=== PATIENT | male | born 1975 | race Caucasian/White ===

== ENCOUNTER 2016-03-16 00:04 | Observation (INO) | payer SELFPAY ==
[~2016-03-16] VITALS: Ht 182.9 cm; Wt 116.8 kg
[~2016-03-16 00:04] MED LIST: ATENOLOL50 MG PO; CARVEDILOL3.125 MG PO; COMPAZINE5 MG PO; LASIX40 MG PO; LO-DOSE ASPIRIN81 M2 PO; MEDROL DOSEPAK4 MG PO; NORVASC10 MG PO; OMEPRAZOLE40 M1 PO; TRAMADOL HCL50 MG PO; VENTOLIN HFA18 GM IH; ZOFRAN4 MG PO; isosorbide PO
[2016-03-16 00:46] LABS: HEMATOCRIT 45.9 % (38.0-50.0); MCH 31.4 PG (29.0-34.0); MCHC 34.9 G/DL (30.0-36.0); MCV 90.2 FL (86-99); MEAN PLAT.VOLUME 8.7 uM^3 (9.0-12.4); PLATELET COUNT 345 K/uL (156-360); RBC DIS.WIDTH-CV 13.6 % (11.8-14.6); RBC DIS.WIDTH-SD 43.8 % (39-53); RED BLOOD COUNT 5.09 M/uL (4.00-5.50); WHITE BLOOD COUNT 10.9 K/uL (4.1-10.2)
[2016-03-16 00:56] LABS: CHLORIDE 105 mEq/L (99-109); POTASSIUM 3.8 mEq/L (3.7-5.4); SODIUM 139 mEq/L (136-147)
[2016-03-16 00:58] LABS: GLUCOSE 109 mg/dL (70-99)
[2016-03-16 00:59] LABS: ANION GAP 10 MEQ/L (2-14)
[2016-03-16 01:02] LABS: GFR ESTIMATE (CALCULATED) > 59 mL/min/
[2016-03-16 01:03] LABS: UREA NITROGEN (BUN) 8 mg/dL (9-23)
[2016-03-16 01:09] LABS: TROP-I INTERPRETATION NEGATIVE; TROPONIN-I < 0.01 ng/mL (0.0-0.30)
[2016-03-16 01:52] LABS: D-DIMER ELISA 0.54 mg/L FEU (< 0.57)
[2016-03-16 06:15] VITALS: BP 114/70
[2016-03-16 07:58] VITALS: BP 111/70
[2016-03-16 12:11] VITALS: BP 107/77
[2016-03-16 12:55] LABS: TROP-I INTERPRETATION NEGATIVE; TROPONIN-I < 0.01 ng/mL (0.0-0.30)
[2016-03-16] MEDS ORDERED: IMDUR30 MG PO (13:16)
== END 2016-03-16 15:08 | disposition left against medical advice (07) ==
LOC: EME 00:04 → EDOF 03:49 → 4EAST 05:31
PROVIDERS: Hospitalist
DX: M79.604 Pain in right leg (principal); R07.9 Chest pain, unspecified; I25.10 Atherosclerotic heart disease of native coronary artery without angina pectoris; F17.200 Nicotine dependence, unspecified, uncomplicated; Z82.49 Family history of ischemic heart disease and other diseases of the circulatory system; Z82.3 Family history of stroke; Z80.49 Family history of malignant neoplasm of other genital organs
CPT/HCPCS: 71020; 71250; 78582; 80048; 83880; 84484; 85027; 85379; 93005; 93971; A9540; A9567; G0378; J1170; J1650; J2270; J2405; J3010

== ENCOUNTER 2016-03-21 23:39 | Observation (INO) | payer SELFPAY ==
[~2016-03-21] VITALS: Ht 182.9 cm; Wt 116.6 kg
[~2016-03-21 23:39] MED LIST changes: +IMDUR30 MG PO
[2016-03-22 01:25] LABS: HEMATOCRIT 46.6 % (38.0-50.0); MCH 31.3 PG (29.0-34.0); MCV 89.6 FL (86-99); MEAN PLAT.VOLUME 8.9 uM^3 (9.0-12.4); PLATELET COUNT 349 K/uL (156-360); RBC DIS.WIDTH-CV 13.5 % (11.8-14.6); RBC DIS.WIDTH-SD 43.7 % (39-53); WHITE BLOOD COUNT 8.1 K/uL (4.1-10.2)
[2016-03-22 01:36] LABS: CHLORIDE 105 mEq/L (99-109); POTASSIUM 4.1 mEq/L (3.7-5.4); SODIUM 138 mEq/L (136-147)
[2016-03-22 01:37] LABS: GLUCOSE 100 mg/dL (70-99)
[2016-03-22 01:39] LABS: ANION GAP 10 MEQ/L (2-14)
[2016-03-22 01:41] LABS: GFR ESTIMATE (CALCULATED) > 59 mL/min/
[2016-03-22 01:42] LABS: UREA NITROGEN (BUN) 9 mg/dL (9-23)
[2016-03-22 01:47] LABS: TROP-I INTERPRETATION NEGATIVE; TROPONIN-I < 0.01 ng/mL (0.0-0.30)
[2016-03-22 02:25] LABS: D-DIMER ELISA 0.53 mg/L FEU (< 0.57)
[2016-03-22 05:31] VITALS: BP 126/81
[2016-03-22 07:48] VITALS: BP 117/71
[2016-03-22 08:07] LABS: HEMATOCRIT 42.9 % (38.0-50.0); MCH 31.6 PG (29.0-34.0); MCV 90.5 FL (86-99); MEAN PLAT.VOLUME 9.6 uM^3 (9.0-12.4); PLATELET COUNT 280 K/uL (156-360); RBC DIS.WIDTH-CV 13.4 % (11.8-14.6); RBC DIS.WIDTH-SD 44.3 % (39-53); RED BLOOD COUNT 4.74 M/uL (4.00-5.50); WHITE BLOOD COUNT 6.5 K/uL (4.1-10.2)
[2016-03-22 08:35] LABS: TROP-I INTERPRETATION NEGATIVE; TROPONIN-I < 0.01 ng/mL (0.0-0.30)
[2016-03-22 11:51] VITALS: BP 114/64
[2016-03-22] MEDS ORDERED: ASPIR 8181 M1 PO (12:07)
[2016-03-22] MEDS ORDERED: CARVEDILOL3.125 MG PO (12:07)
[2016-03-22] MEDS ORDERED: NORVASC10 MG PO (12:07)
[2016-03-22] MEDS ORDERED: IMDUR30 MG PO (12:08)
[2016-03-22] MEDS ORDERED: LASIX20 MG PO (12:08)
[2016-03-22 13:56] LABS: TROP-I INTERPRETATION NEGATIVE; TROPONIN-I < 0.01 ng/mL (0.0-0.30)
[2016-03-22 15:04] VITALS: BP 113/70
== END 2016-03-22 15:16 | disposition home or self-care (01) ==
LOC: EME 23:39 → 5WEST 03-22 03:45 → EDOF 03-22 03:45 → 5WEST 03-22 05:22
PROVIDERS: Family Medicine; Physician Assistant
DX: R07.89 Other chest pain (principal); M54.2 Cervicalgia; M25.512 Pain in left shoulder; I10 Essential (primary) hypertension; F17.210 Nicotine dependence, cigarettes, uncomplicated; E66.9 Obesity, unspecified; I25.10 Atherosclerotic heart disease of native coronary artery without angina pectoris; I80.9 Phlebitis and thrombophlebitis of unspecified site; Z82.49 Family history of ischemic heart disease and other diseases of the circulatory system; Z82.3 Family history of stroke; Z80.49 Family history of malignant neoplasm of other genital organs; Z91.013 Allergy to seafood; Z88.8 Allergy status to other drugs, medicaments and biological substances; Z88.5 Allergy status to narcotic agent; Z88.6 Allergy status to analgesic agent
CPT/HCPCS: 71020; 80048; 83880; 84484; 85027; 85379; 85610; 85730; 93005; 93306; 93971; 99281; 99285; G0378; J2270; J2405

== ENCOUNTER 2016-03-25 17:35 | Observation (INO) | payer SELFPAY ==
[~2016-03-25] VITALS: Ht 195.6 cm; Wt 116.5 kg
[~2016-03-25 17:35] MED LIST changes: +ASPIR 8181 M1 PO; +LASIX20 MG PO
[2016-03-25] MEDS ORDERED: IMDUR30 MG PO (18:23)
[2016-03-25] MEDS ORDERED: NORVASC10 MG PO (18:24)
[2016-03-25] MEDS ORDERED: LO-DOSE ASPIRIN81 M2 PO (18:25)
[2016-03-25] MEDS ORDERED: CARVEDILOL3.125 MG PO (18:25)
[2016-03-25 19:34] LABS: BASOPHIL COUNT 0.1 K/uL (0-0.1); EOSINOPHIL (%) 2.8 % (0-5); EOSINOPHIL COUNT 0.2 K/uL (0-0.3); HEMATOCRIT 48.3 % (38.0-50.0); IMMATURE GRANULOCYTE (%) 0.3 % (0.0-0.7); IMMATURE GRANULOCYTE COUNT 0.2 K/uL; LYMPHOCYTE COUNT 2.4 K/uL (1.0-2.8); MCH 31.5 PG (29.0-34.0); MCHC 35.4 G/DL (30.0-36.0); MEAN PLAT.VOLUME 9.2 uM^3 (9.0-12.4); MONOCYTE (%) 10.7 % (3-12); MONOCYTE COUNT 0.9 K/uL (0-0.8); NEUTROPHIL (%) 55.7 % (45-76); NEUTROPHIL COUNT 4.4 K/uL (1.8-6.4); PLATELET COUNT 332 K/uL (156-360); RBC DIS.WIDTH-CV 13.3 % (11.8-14.6); RBC DIS.WIDTH-SD 42.8 % (39-53); RED BLOOD COUNT 5.43 M/uL (4.00-5.50); WHITE BLOOD COUNT 7.9 K/uL (4.1-10.2)
[2016-03-25 19:44] LABS: CHLORIDE 104 mEq/L (99-109); POTASSIUM 4.5 mEq/L (3.7-5.4); SODIUM 136 mEq/L (136-147)
[2016-03-25 19:46] LABS: GLUCOSE 97 mg/dL (70-99)
[2016-03-25 19:47] LABS: ANION GAP 10 MEQ/L (2-14)
[2016-03-25 19:50] LABS: GFR ESTIMATE (CALCULATED) > 59 mL/min/
[2016-03-25 19:51] LABS: UREA NITROGEN (BUN) 9 mg/dL (9-23)
[2016-03-25 19:52] LABS: TROP-I INTERPRETATION NEGATIVE; TROPONIN-I 0.02 ng/mL (0.0-0.30)
[2016-03-26 00:19] VITALS: BP 113/77
[2016-03-26 00:41] LABS: TROP-I INTERPRETATION NEGATIVE; TROPONIN-I < 0.01 ng/mL (0.0-0.30)
[2016-03-26 09:14] VITALS: BP 110/63
[2016-03-26 09:16] LABS: TROP-I INTERPRETATION NEGATIVE; TROPONIN-I < 0.01 ng/mL (0.0-0.30)
[2016-03-26 16:22] VITALS: BP 109/58
== END 2016-03-26 19:54 | disposition left against medical advice (07) ==
LOC: EME 17:35 → EDOF 22:48 → 5WEST 03-26 00:05
PROVIDERS: Family Medicine; Physician Assistant
DX: R07.9 Chest pain, unspecified (principal); I10 Essential (primary) hypertension; F17.200 Nicotine dependence, unspecified, uncomplicated; D75.1 Secondary polycythemia; I25.10 Atherosclerotic heart disease of native coronary artery without angina pectoris; Z79.82 Long term (current) use of aspirin; Z82.49 Family history of ischemic heart disease and other diseases of the circulatory system; Z82.3 Family history of stroke; Z80.49 Family history of malignant neoplasm of other genital organs; Z91.09 Other allergy status, other than to drugs and biological substances; Z88.8 Allergy status to other drugs, medicaments and biological substances; Z88.5 Allergy status to narcotic agent
CPT/HCPCS: 71020; 80048; 84484; 85025; 93005; 99281; 99285; C9113; G0378; J1644; J2270; J2550

== ENCOUNTER 2016-04-05 18:51 | Emergency (ER) | payer SELFPAY ==
[~2016-04-05] VITALS: Ht 177.8 cm; Wt 116.1 kg
[2016-04-05 19:34] LABS: HEMATOCRIT 45.9 % (38.0-50.0); MCH 31.1 PG (29.0-34.0); MCHC 35.1 G/DL (30.0-36.0); MCV 88.8 FL (86-99); PLATELET COUNT 281 K/uL (156-360); RBC DIS.WIDTH-CV 13.5 % (11.8-14.6); RED BLOOD COUNT 5.17 M/uL (4.00-5.50)
[2016-04-05 19:42] LABS: CHLORIDE 105 mEq/L (99-109); POTASSIUM 4.1 mEq/L (3.7-5.4); SODIUM 137 mEq/L (136-147)
[2016-04-05 19:44] LABS: GLUCOSE 117 mg/dL (70-99)
[2016-04-05 19:46] LABS: ANION GAP 11 MEQ/L (2-14)
[2016-04-05 19:48] LABS: GFR ESTIMATE (CALCULATED) > 59 mL/min/
[2016-04-05 19:49] LABS: UREA NITROGEN (BUN) 9 mg/dL (9-23)
[2016-04-05 19:54] LABS: TROP-I INTERPRETATION NEGATIVE; TROPONIN-I < 0.01 ng/mL (0.0-0.30)
[2016-04-05 21:07] LABS: D-DIMER ELISA 0.54 mg/L FEU (< 0.57)
[2016-04-05 21:33] LABS: TROP-I INTERPRETATION NEGATIVE; TROPONIN-I < 0.01 ng/mL (0.0-0.30)
[2016-04-05 22:43] VITALS: BP 133/98
== END 2016-04-05 23:11 | disposition home or self-care (01) ==
LOC: EME 18:51
PROVIDERS: Emergency Medicine
DX: R07.89 Other chest pain (principal); E78.5 Hyperlipidemia, unspecified; I10 Essential (primary) hypertension; I25.10 Atherosclerotic heart disease of native coronary artery without angina pectoris; Z79.82 Long term (current) use of aspirin; F17.200 Nicotine dependence, unspecified, uncomplicated
CPT/HCPCS: 71020; 80048; 84484; 85027; 85379; 93005; 99281; 99284

== ENCOUNTER 2016-04-21 15:28 | Observation (INO) | payer SELFPAY ==
[~2016-04-21] VITALS: Ht 182.9 cm; Wt 117.5 kg
[2016-04-21 16:49] LABS: HEMATOCRIT 44.2 % (38.0-50.0); MCH 31.1 PG (29.0-34.0); MCHC 34.4 G/DL (30.0-36.0); MCV 90.4 FL (86-99); PLATELET COUNT 296 K/uL (156-360); RBC DIS.WIDTH-CV 13.2 % (11.8-14.6); RBC DIS.WIDTH-SD 43.7 % (39-53); RED BLOOD COUNT 4.89 M/uL (4.00-5.50); WHITE BLOOD COUNT 6.8 K/uL (4.1-10.2)
[2016-04-21 16:56] LABS: PROTHROMBIN TIME 10.2 (9.2-11.2); PTT 30.6 (25-32)
[2016-04-21 16:59] LABS: CHLORIDE 107 mEq/L (99-109); POTASSIUM 3.8 mEq/L (3.7-5.4); SODIUM 138 mEq/L (136-147)
[2016-04-21 17:01] LABS: GLUCOSE 95 mg/dL (70-99)
[2016-04-21 17:02] LABS: ANION GAP 9 MEQ/L (2-14)
[2016-04-21 17:05] LABS: GFR ESTIMATE (CALCULATED) > 59 mL/min/; UREA NITROGEN (BUN) 6 mg/dL (9-23)
[2016-04-21 17:07] LABS: TROP-I INTERPRETATION NEGATIVE; TROPONIN-I < 0.01 ng/mL (0.0-0.30)
[2016-04-21 20:18] VITALS: BP 120/88
[2016-04-21 23:54] VITALS: BP 109/63
[2016-04-21 23:58] LABS: TROP-I INTERPRETATION NEGATIVE; TROPONIN-I < 0.01 ng/mL (0.0-0.30)
[2016-04-22 04:00] VITALS: BP 110/54
[2016-04-22 05:04] LABS: HEMATOCRIT 41.3 % (38.0-50.0); MCH 30.9 PG (29.0-34.0); MCHC 33.7 G/DL (30.0-36.0); MCV 91.8 FL (86-99); MEAN PLAT.VOLUME 8.9 uM^3 (9.0-12.4); PLATELET COUNT 285 K/uL (156-360); RBC DIS.WIDTH-CV 13.3 % (11.8-14.6); RBC DIS.WIDTH-SD 45.3 % (39-53); WHITE BLOOD COUNT 6.4 K/uL (4.1-10.2)
[2016-04-22 05:17] LABS: CHLORIDE 106 mEq/L (99-109); SODIUM 139 mEq/L (136-147)
[2016-04-22 05:19] LABS: GLUCOSE 89 mg/dL (70-99)
[2016-04-22 05:20] LABS: ANION GAP 7 MEQ/L (2-14)
[2016-04-22 05:21] LABS: TOTAL BILIRUBIN 0.6 mg/dL (0.0-1.0)
[2016-04-22 05:22] LABS: ALKALINE PHOSPHATASE 35 IU/L (3-129)
[2016-04-22 05:23] LABS: GFR ESTIMATE (CALCULATED) > 59 mL/min/
[2016-04-22 05:24] LABS: UREA NITROGEN (BUN) 7 mg/dL (9-23)
[2016-04-22 05:27] LABS: TROP-I INTERPRETATION NEGATIVE; TROPONIN-I < 0.01 ng/mL (0.0-0.30)
[2016-04-22 07:54] VITALS: BP 91/55
[2016-04-22 12:45] VITALS: BP 119/80
== END 2016-04-22 14:50 | disposition left against medical advice (07) ==
LOC: EXP 15:28 → EME 15:28 → EDOF 18:20 → 5WEST 20:20
PROVIDERS: Internal Medicine; Nurse Practitioner Family
DX: R07.89 Other chest pain (principal); I25.10 Atherosclerotic heart disease of native coronary artery without angina pectoris; I11.0 Hypertensive heart disease with heart failure; I50.9 Heart failure, unspecified; G43.909 Migraine, unspecified, not intractable, without status migrainosus; F32.9 Major depressive disorder, single episode, unspecified; F17.210 Nicotine dependence, cigarettes, uncomplicated; Z91.19 Patient's noncompliance with other medical treatment and regimen
CPT/HCPCS: 71020; 80048; 80053; 83880; 84484; 85027; 85610; 85730; 93005; 99281; 99285; G0378; J1644; J2270; J2405; J7030; S0028

== ENCOUNTER 2016-05-16 16:33 | Emergency (ER) | payer SELFPAY ==
[~2016-05-16] VITALS: Ht 182.9 cm; Wt 119.4 kg
[2016-05-16 16:55] VITALS: BP 119/82
[2016-05-16 17:17] LABS: HEMATOCRIT 46.3 % (38.0-50.0); MCH 30.4 PG (29.0-34.0); MCHC 33.7 G/DL (30.0-36.0); MCV 90.1 FL (86-99); MEAN PLAT.VOLUME 8.8 uM^3 (9.0-12.4); PLATELET COUNT 344 K/uL (156-360); RBC DIS.WIDTH-CV 13.2 % (11.8-14.6); RBC DIS.WIDTH-SD 43.9 % (39-53); RED BLOOD COUNT 5.14 M/uL (4.00-5.50); WHITE BLOOD COUNT 6.9 K/uL (4.1-10.2)
[2016-05-16 17:33] LABS: CHLORIDE 106 mEq/L (99-109); POTASSIUM 4.1 mEq/L (3.7-5.4); SODIUM 138 mEq/L (136-147)
[2016-05-16 17:34] LABS: GLUCOSE 100 mg/dL (70-99)
[2016-05-16 17:36] LABS: ANION GAP 10 MEQ/L (2-14)
[2016-05-16 17:38] LABS: GFR ESTIMATE (CALCULATED) > 59 mL/min/
[2016-05-16 17:39] LABS: UREA NITROGEN (BUN) 11 mg/dL (9-23)
[2016-05-16 17:45] LABS: TROP-I INTERPRETATION NEGATIVE; TROPONIN-I < 0.01 ng/mL (0.0-0.30)
== END 2016-05-16 19:51 | disposition left against medical advice (07) ==
LOC: EME 16:33
DX: R07.9 Chest pain, unspecified (principal); R06.02 Shortness of breath; Z53.21 Procedure and treatment not carried out due to patient leaving prior to being seen by health care provider
CPT/HCPCS: 71020; 80048; 84484; 85027; 93005

== ENCOUNTER 2016-06-05 14:59 | Observation (INO) | payer SELFPAY ==
[~2016-06-05] VITALS: Ht 182.9 cm; Wt 118.5 kg
[2016-06-05 16:02] LABS: HEMATOCRIT 47.7 % (38.0-50.0); MCH 30.9 PG (29.0-34.0); MCHC 34.4 G/DL (30.0-36.0); MEAN PLAT.VOLUME 8.9 uM^3 (9.0-12.4); PLATELET COUNT 307 K/uL (156-360); RBC DIS.WIDTH-CV 13.5 % (11.8-14.6); RBC DIS.WIDTH-SD 44.8 % (39-53); WHITE BLOOD COUNT 6.9 K/uL (4.1-10.2)
[2016-06-05 16:10] LABS: CHLORIDE 105 mEq/L (99-109); POTASSIUM 3.6 mEq/L (3.7-5.4); SODIUM 137 mEq/L (136-147)
[2016-06-05 16:11] LABS: GLUCOSE 120 mg/dL (70-99)
[2016-06-05 16:13] LABS: ANION GAP 11 MEQ/L (2-14)
[2016-06-05 16:15] LABS: GFR ESTIMATE (CALCULATED) > 59 mL/min/
[2016-06-05 16:16] LABS: UREA NITROGEN (BUN) 7 mg/dL (9-23)
[2016-06-05 16:25] LABS: TROP-I INTERPRETATION NEGATIVE; TROPONIN-I < 0.01 ng/mL (0.0-0.30)
[2016-06-05 17:57] LABS: D-DIMER ELISA 0.44 mg/L FEU (< 0.57)
[2016-06-05 21:48] VITALS: BP 122/90
[2016-06-06 00:37] VITALS: BP 122/63
[2016-06-06 00:59] LABS: TROP-I INTERPRETATION NEGATIVE; TROPONIN-I < 0.01 ng/mL (0.0-0.30)
[2016-06-06 07:06] VITALS: BP 131/78
[2016-06-06 09:01] LABS: MCH 30.3 PG (29.0-34.0); MCHC 33.8 G/DL (30.0-36.0); MCV 89.8 FL (86-99); MEAN PLAT.VOLUME 8.8 uM^3 (9.0-12.4); PLATELET COUNT 279 K/uL (156-360); RBC DIS.WIDTH-CV 13.6 % (11.8-14.6); RED BLOOD COUNT 5.01 M/uL (4.00-5.50)
[2016-06-06 09:28] LABS: ANION GAP 10 MEQ/L (2-14); CHLORIDE 103 MEQ/L (99-109); GFR ESTIMATE (CALCULATED) > 59 mL/min/; GLUCOSE 90 mg/dL (70-99); SAMPLE HEMOLYSIS CHECK 0; SAMPLE ICTERIC CHECK 0; SAMPLE LIPEMIA CHECK 0; SODIUM 137 MEQ/L (136-147); UREA NITROGEN (BUN) 8 mg/dL (9-23)
[2016-06-06 09:29] LABS: POTASSIUM 4.6 MEQ/L (3.7-5.4)
[2016-06-06 09:44] LABS: TROP-I INTERPRETATION NEGATIVE; TROPONIN-I < 0.01 ng/mL (0.0-0.30)
== END 2016-06-06 10:43 | disposition left against medical advice (07) ==
LOC: EME 14:59 → EDOF 20:48 → 5WEST 20:48 → EDOF 20:48 → 5WEST 21:33
PROVIDERS: Hospitalist; Internal Medicine
DX: R07.89 Other chest pain (principal); E87.6 Hypokalemia; I11.0 Hypertensive heart disease with heart failure; I50.22 Chronic systolic (congestive) heart failure; Z91.19 Patient's noncompliance with other medical treatment and regimen; E78.5 Hyperlipidemia, unspecified; F17.200 Nicotine dependence, unspecified, uncomplicated; E66.9 Obesity, unspecified; Z68.35 Body mass index [BMI] 35.0-35.9, adult; I25.10 Atherosclerotic heart disease of native coronary artery without angina pectoris
CPT/HCPCS: 71020; 80048; 84484; 85027; 85379; 93005; 99281; 99285; G0378; J1650; J2270; J2405; J3010; J7030

== ENCOUNTER 2016-08-18 00:24 | Emergency (ER) | payer SELFPAY ==
[~2016-08-18] VITALS: Ht 182.9 cm; Wt 120.2 kg
[2016-08-18 01:32] LABS: HEMATOCRIT 46.6 % (38.0-50.0); MCH 30.8 PG (29.0-34.0); MCHC 34.1 G/DL (30.0-36.0); MCV 90.1 FL (86-99); MEAN PLAT.VOLUME 8.8 uM^3 (9.0-12.4); PLATELET COUNT 339 K/uL (156-360); RBC DIS.WIDTH-CV 13.2 % (11.8-14.6); RBC DIS.WIDTH-SD 43.8 % (39-53); RED BLOOD COUNT 5.17 M/uL (4.00-5.50)
[2016-08-18 01:52] LABS: CHLORIDE 104 mEq/L (99-109); SODIUM 136 mEq/L (136-147)
[2016-08-18 01:54] LABS: GLUCOSE 103 mg/dL (70-99)
[2016-08-18 01:55] LABS: ANION GAP 10 MEQ/L (2-14)
[2016-08-18 01:58] LABS: GFR ESTIMATE (CALCULATED) > 59 mL/min/; UREA NITROGEN (BUN) 7 mg/dL (9-23)
[2016-08-18 02:01] LABS: TROP-I INTERPRETATION NEGATIVE; TROPONIN-I < 0.01 ng/mL (0.0-0.30)
[2016-08-18 03:00] VITALS: BP 129/89
== END 2016-08-18 03:01 | disposition home or self-care (01) ==
LOC: EME 00:24 → EXP 00:24
DX: R07.9 Chest pain, unspecified (principal); I10 Essential (primary) hypertension; E78.5 Hyperlipidemia, unspecified; Z79.82 Long term (current) use of aspirin; F17.200 Nicotine dependence, unspecified, uncomplicated; J98.11 Atelectasis
CPT/HCPCS: 71020; 80048; 84484; 85027; 93005; 99281; 99284

== ENCOUNTER 2016-09-09 17:46 | Emergency (ER) | payer SELFPAY ==
[~2016-09-09] VITALS: Ht 182.9 cm; Wt 121.3 kg
[2016-09-09 18:40] LABS: HEMATOCRIT 46.7 % (38.0-50.0); MCH 30.6 PG (29.0-34.0); MCHC 34.5 G/DL (30.0-36.0); MCV 88.6 FL (86-99); MEAN PLAT.VOLUME 8.7 uM^3 (9.0-12.4); PLATELET COUNT 316 K/uL (156-360); RBC DIS.WIDTH-CV 13.2 % (11.8-14.6); RED BLOOD COUNT 5.27 M/uL (4.00-5.50); WHITE BLOOD COUNT 8.1 K/uL (4.1-10.2)
[2016-09-09 18:49] LABS: CHLORIDE 104 mEq/L (99-109); POTASSIUM 3.7 mEq/L (3.7-5.4); SODIUM 137 mEq/L (136-147)
[2016-09-09 18:51] LABS: GLUCOSE 102 mg/dL (70-99)
[2016-09-09 18:52] LABS: ANION GAP 10 MEQ/L (2-14)
[2016-09-09 18:55] LABS: GFR ESTIMATE (CALCULATED) > 59 mL/min/; UREA NITROGEN (BUN) 8 mg/dL (9-23)
[2016-09-09 19:00] LABS: TROP-I INTERPRETATION NEGATIVE; TROPONIN-I < 0.01 ng/mL (0.0-0.30)
[2016-09-09] MEDS ORDERED: LASIX20 MG PO (20:10)
[2016-09-10 00:53] VITALS: BP 120/82
== END 2016-09-10 00:28 | disposition home or self-care (01) ==
LOC: EME 17:46 → EDOF 21:39 → ENRESERV 21:40 → CANRESERV 21:43 → ENRESERV 21:43 → CANRESERV 23:08
DX: R07.89 Other chest pain (principal); I11.0 Hypertensive heart disease with heart failure; I50.9 Heart failure, unspecified; I25.10 Atherosclerotic heart disease of native coronary artery without angina pectoris; E78.5 Hyperlipidemia, unspecified; F32.9 Major depressive disorder, single episode, unspecified; F41.9 Anxiety disorder, unspecified; F17.200 Nicotine dependence, unspecified, uncomplicated; Z87.01 Personal history of pneumonia (recurrent); E66.01 Morbid (severe) obesity due to excess calories; Z68.36 Body mass index [BMI] 36.0-36.9, adult; Z91.19 Patient's noncompliance with other medical treatment and regimen
CPT/HCPCS: 71020; 80048; 84484; 85027; 99281; 99285; J2405

== ENCOUNTER 2016-09-15 06:50 | Observation (INO) | payer SELFPAY ==
[~2016-09-15] VITALS: Ht 182.9 cm; Wt 120.0 kg
[2016-09-15 08:02] LABS: EOSINOPHIL (%) 4.2 % (0-5); EOSINOPHIL COUNT 0.3 K/uL (0-0.3); HEMATOCRIT 43.5 % (38.0-50.0); IMMATURE GRANULOCYTE (%) 0.5 % (0.0-0.7); LYMPHOCYTE COUNT 2.6 K/uL (1.0-2.8); MCH 30.7 PG (29.0-34.0); MCV 90.2 FL (86-99); MEAN PLAT.VOLUME 8.9 uM^3 (9.0-12.4); MONOCYTE (%) 10.2 % (3-12); MONOCYTE COUNT 0.8 K/uL (0-0.8); NEUTROPHIL (%) 51.5 % (45-76); PLATELET COUNT 271 K/uL (156-360); RBC DIS.WIDTH-CV 13.4 % (11.8-14.6); RBC DIS.WIDTH-SD 44.2 % (39-53); RED BLOOD COUNT 4.82 M/uL (4.00-5.50); WHITE BLOOD COUNT 7.7 K/uL (4.1-10.2)
[2016-09-15 08:15] LABS: PROTHROMBIN TIME 10.5 SEC (10.2-12.9)
[2016-09-15 08:17] LABS: D-DIMER ELISA < 150.00 ng/mLDDU (<230)
[2016-09-15 08:44] LABS: ALKALINE PHOSPHATASE 38 IU/L (3-129); ANION GAP 6 MEQ/L (2-14); CHLORIDE 104 MEQ/L (99-109); GFR ESTIMATE (CALCULATED) > 59 mL/min/; GLUCOSE 99 mg/dL (70-99); MAGNESIUM 1.9 mg/dl (1.3-2.7); POTASSIUM 3.7 MEQ/L (3.7-5.4); SAMPLE HEMOLYSIS CHECK 0; SAMPLE ICTERIC CHECK 0; SAMPLE LIPEMIA CHECK 0; SODIUM 136 MEQ/L (136-147); TOTAL BILIRUBIN 0.5 MG/DL (0.0-1.0); UREA NITROGEN (BUN) 8 mg/dL (9-23)
[2016-09-15 08:45] LABS: TROP-I INTERPRETATION NEGATIVE; TROPONIN-I 0.01 ng/mL (0.0-0.30)
[2016-09-15 10:06] LABS: ADD MIUA? NO; BILIRUBIN NEGATIVE; BLOOD NEGATIVE; COLOR YELLOW ((YELLOW)); GLUCOSE (STRIP) NEGATIVE; KETONES NEGATIVE; LEUKOCYTES NEGATIVE; NITRITE NEGATIVE; PROTEIN (STRIP) NEGATIVE; SPECIFIC GRAVITY 1.012 (1.000-1.030); UCUL ADDED? NO; UROBILINOGEN 0.2 MG/DL (0.2-1.0)
[2016-09-15 12:59] VITALS: BP 134/74
[2016-09-15 14:21] LABS: TROP-I INTERPRETATION NEGATIVE; TROPONIN-I < 0.01 ng/mL (0.0-0.30)
[2016-09-15 15:54] VITALS: BP 120/72
== END 2016-09-15 18:00 | disposition home or self-care (01) ==
LOC: EME 06:50 → EDOF 09:20 → ENRESERV 09:23 → 5WEST 12:20
PROVIDERS: Internal Medicine; Physician Assistant
DX: R07.9 Chest pain, unspecified (principal); F17.200 Nicotine dependence, unspecified, uncomplicated; E78.5 Hyperlipidemia, unspecified; I25.10 Atherosclerotic heart disease of native coronary artery without angina pectoris; Z82.49 Family history of ischemic heart disease and other diseases of the circulatory system; I10 Essential (primary) hypertension; E66.9 Obesity, unspecified; Z88.6 Allergy status to analgesic agent; Z88.5 Allergy status to narcotic agent; Z88.8 Allergy status to other drugs, medicaments and biological substances; Z91.013 Allergy to seafood
CPT/HCPCS: 71020; 80053; 81003; 83735; 83880; 84484; 85025; 85379; 85610; 93005; 99281; 99285; G0378; J2270; J2405; J7120

== ENCOUNTER 2016-09-17 01:30 | Emergency (ER) | payer SELFPAY ==
[~2016-09-17] VITALS: Ht 182.9 cm; Wt 119.0 kg
[2016-09-17 02:01] LABS: HEMATOCRIT 43.5 % (38.0-50.0); MCH 31.1 PG (29.0-34.0); MCHC 34.9 G/DL (30.0-36.0); MCV 89.1 FL (86-99); MEAN PLAT.VOLUME 8.8 uM^3 (9.0-12.4); PLATELET COUNT 298 K/uL (156-360); RBC DIS.WIDTH-CV 13.2 % (11.8-14.6); RBC DIS.WIDTH-SD 43.5 % (39-53); RED BLOOD COUNT 4.88 M/uL (4.00-5.50); WHITE BLOOD COUNT 10.3 K/uL (4.1-10.2)
[2016-09-17 02:12] LABS: CHLORIDE 103 mEq/L (99-109); POTASSIUM 3.7 mEq/L (3.7-5.4); SODIUM 136 mEq/L (136-147)
[2016-09-17 02:14] LABS: GLUCOSE 93 mg/dL (70-99)
[2016-09-17 02:16] LABS: ANION GAP 11 MEQ/L (2-14)
[2016-09-17 02:18] LABS: GFR ESTIMATE (CALCULATED) > 59 mL/min/
[2016-09-17 02:19] LABS: UREA NITROGEN (BUN) 9 mg/dL (9-23)
[2016-09-17 02:26] LABS: TROP-I INTERPRETATION NEGATIVE; TROPONIN-I < 0.01 ng/mL (0.0-0.30)
[2016-09-17 02:48] VITALS: BP 109/81
== END 2016-09-17 02:50 | disposition home or self-care (01) ==
LOC: EME 01:30
DX: R07.9 Chest pain, unspecified (principal); I11.0 Hypertensive heart disease with heart failure; I50.9 Heart failure, unspecified; I25.10 Atherosclerotic heart disease of native coronary artery without angina pectoris; E78.5 Hyperlipidemia, unspecified; F17.200 Nicotine dependence, unspecified, uncomplicated; Z88.6 Allergy status to analgesic agent; Z91.013 Allergy to seafood
CPT/HCPCS: 71020; 80048; 84484; 85027; 93005; 99281; 99284

== ENCOUNTER 2016-10-19 02:57 | Observation (INO) | payer SELFPAY ==
[~2016-10-19] VITALS: Ht 182.9 cm; Wt 116.8 kg
[2016-10-19 03:23] LABS: HEMATOCRIT 45.4 % (38.0-50.0); MCH 30.6 PG (29.0-34.0); MCHC 34.1 G/DL (30.0-36.0); MCV 89.5 FL (86-99); MEAN PLAT.VOLUME 8.8 uM^3 (9.0-12.4); PLATELET COUNT 321 K/uL (156-360); RBC DIS.WIDTH-CV 13.5 % (11.8-14.6); RBC DIS.WIDTH-SD 44.5 % (39-53); RED BLOOD COUNT 5.07 M/uL (4.00-5.50); WHITE BLOOD COUNT 9.3 K/uL (4.1-10.2)
[2016-10-19 03:35] LABS: CHLORIDE 102 mEq/L (99-109); POTASSIUM 3.6 mEq/L (3.7-5.4); SODIUM 137 mEq/L (136-147)
[2016-10-19 03:36] LABS: GLUCOSE 93 mg/dL (70-99)
[2016-10-19 03:38] LABS: ANION GAP 10 MEQ/L (2-14)
[2016-10-19 03:40] LABS: GFR ESTIMATE (CALCULATED) > 59 mL/min/
[2016-10-19 03:41] LABS: UREA NITROGEN (BUN) 6 mg/dL (9-23)
[2016-10-19 03:44] LABS: TROP-I INTERPRETATION NEGATIVE; TROPONIN-I < 0.01 ng/mL (0.0-0.30)
[2016-10-19 05:01] LABS: SERUM ETHYL ALCOHOL < 10 mg/dL
[2016-10-19 05:21] LABS: ADD MIUA? NO; BILIRUBIN NEGATIVE; BLOOD NEGATIVE; COLOR YELLOW ((YELLOW)); GLUCOSE (STRIP) NEGATIVE; KETONES NEGATIVE; LEUKOCYTES NEGATIVE; NITRITE NEGATIVE; PROTEIN (STRIP) NEGATIVE; SPECIFIC GRAVITY 1.008 (1.000-1.030); UCUL ADDED? NO; UROBILINOGEN 0.2 MG/DL (0.2-1.0)
[2016-10-19 05:50] LABS: ADD MEDTOX COMMENT Y; AMPHETAMINE NEGATIVE (500 ng/mL); BARBITURATES NEGATIVE (200 ng/mL); BENZODIAZEPINES NEGATIVE (150 ng/mL); COCAINE NEGATIVE (150 ng/mL); INTERNAL CONTROLS VALID? YES; METHADONE NEGATIVE (200 ng/mL); METHAMPHETAMINE NEGATIVE (500 ng/mL); OPIATES (MORPHINE) PRESUMPTIVE POSITIVE (100 ng/mL); OXYCODONE NEGATIVE (100 ng/mL); PHENCYCLIDINE NEGATIVE (25 ng/mL); PROPOXYPHENE NEGATIVE (300 ng/mL); THC CANNABINOIDS NEGATIVE (50 ng/mL); TRICYCLIC ANTIDEPRESSANTS NEGATIVE (300 ng/mL)
[2016-10-19 06:07] VITALS: BP 118/82
[2016-10-19 08:54] LABS: TROP-I INTERPRETATION NEGATIVE; TROPONIN-I < 0.01 ng/mL (0.0-0.30)
[2016-10-19 08:57] VITALS: BP 122/85
[2016-10-19 12:00] VITALS: BP 114/57
== END 2016-10-19 13:30 | disposition home or self-care (01) ==
LOC: EME 02:57 → EDOF 04:28 → ENRESERV 04:29 → 5WEST 05:57
PROVIDERS: Nurse Practitioner Adult Health; Physician Assistant Medical
DX: R07.9 Chest pain, unspecified (principal); R94.31 Abnormal electrocardiogram [ECG] [EKG]; I25.10 Atherosclerotic heart disease of native coronary artery without angina pectoris; I11.0 Hypertensive heart disease with heart failure; I50.9 Heart failure, unspecified; Z82.49 Family history of ischemic heart disease and other diseases of the circulatory system; F17.210 Nicotine dependence, cigarettes, uncomplicated; E66.9 Obesity, unspecified; Z68.35 Body mass index [BMI] 35.0-35.9, adult; Z90.49 Acquired absence of other specified parts of digestive tract; Z82.3 Family history of stroke
CPT/HCPCS: 71020; 80048; 81003; 84484; 84999; 85027; 93005; 99281; 99285; G0378; G0480

== ENCOUNTER 2016-12-23 02:05 | Observation (INO) | payer SELFPAY ==
[~2016-12-23] VITALS: Ht 182.9 cm; Wt 108.6 kg
[2016-12-23 03:01] LABS: HEMATOCRIT 44.2 % (38.0-50.0); MCH 30.8 PG (29.0-34.0); MCHC 34.2 G/DL (30.0-36.0); MCV 90.2 FL (86-99); MEAN PLAT.VOLUME 9.2 uM^3 (9.0-12.4); PLATELET COUNT 267 K/uL (156-360); RBC DIS.WIDTH-CV 13.2 % (11.8-14.6); RBC DIS.WIDTH-SD 43.7 % (39-53); WHITE BLOOD COUNT 6.9 K/uL (4.1-10.2)
[2016-12-23 03:14] LABS: CHLORIDE 105 mEq/L (99-109); SODIUM 137 mEq/L (136-147)
[2016-12-23 03:16] LABS: GLUCOSE 103 mg/dL (70-99)
[2016-12-23 03:17] LABS: ANION GAP 6 MEQ/L (2-14)
[2016-12-23 03:20] LABS: GFR ESTIMATE (CALCULATED) > 59 mL/min/; TROP-I INTERPRETATION NEGATIVE; TROPONIN-I < 0.01 ng/mL (0.0-0.30)
[2016-12-23 03:21] LABS: UREA NITROGEN (BUN) 8 mg/dL (9-23)
[2016-12-23 06:45] LABS: TROP-I INTERPRETATION NEGATIVE; TROPONIN-I < 0.01 ng/mL (0.0-0.30)
[2016-12-23 08:42] VITALS: BP 133/85
[2016-12-23 09:24] LABS: FASTING STATUS NONFASTING
[2016-12-23 10:26] LABS: HDL CHOLESTEROL 27 MG/DL (Desirable>=40); LDL CHOLESTEROL 153 mg/dL (Desirable<100); NON-HDL CHOLESTEROL 187 mg/dL (Desirable<160); TOTAL CHOLESTEROL 214 mg/dL (Desirable<200); TRIGLYCERIDES 170 MG/DL (Normal: <150)
[2016-12-23 11:24] VITALS: BP 106/66
[2016-12-23 12:19] VITALS: BP 112/69
[2016-12-23 12:31] LABS: TROP-I INTERPRETATION NEGATIVE; TROPONIN-I < 0.01 ng/mL (0.0-0.30)
== END 2016-12-23 13:55 | disposition left against medical advice (07) ==
LOC: EME 02:05 → EDOF 07:46 → ENRESERV 07:47 → 5WEST 08:31
PROVIDERS: Internal Medicine; Physician Assistant
DX: R07.9 Chest pain, unspecified (principal); I25.10 Atherosclerotic heart disease of native coronary artery without angina pectoris; F17.210 Nicotine dependence, cigarettes, uncomplicated; G43.909 Migraine, unspecified, not intractable, without status migrainosus; F32.9 Major depressive disorder, single episode, unspecified; Z90.49 Acquired absence of other specified parts of digestive tract; Z82.49 Family history of ischemic heart disease and other diseases of the circulatory system; Z79.82 Long term (current) use of aspirin
CPT/HCPCS: 71020; 80048; 80061; 84484; 85027; 93005; 99281; 99285; G0378; J1650; J2270; J2405

== ENCOUNTER 2017-01-07 20:53 | Emergency (ER) | payer SELFPAY ==
[~2017-01-07] VITALS: Ht 182.9 cm; Wt 116.6 kg
[2017-01-07 21:34] LABS: HEMATOCRIT 46.3 % (38.0-50.0); MCH 31.5 PG (29.0-34.0); MCHC 35.2 G/DL (30.0-36.0); MCV 89.6 FL (86-99); MEAN PLAT.VOLUME 8.9 uM^3 (9.0-12.4); PLATELET COUNT 305 K/uL (156-360); RBC DIS.WIDTH-CV 13.3 % (11.8-14.6); RBC DIS.WIDTH-SD 43.9 % (39-53); RED BLOOD COUNT 5.17 M/uL (4.00-5.50); WHITE BLOOD COUNT 11.5 K/uL (4.1-10.2)
[2017-01-07 21:47] LABS: CHLORIDE 103 mEq/L (99-109); POTASSIUM 3.8 mEq/L (3.7-5.4); SODIUM 133 mEq/L (136-147)
[2017-01-07 21:49] LABS: GLUCOSE 103 mg/dL (70-99)
[2017-01-07 21:50] LABS: ANION GAP 10 MEQ/L (2-14)
[2017-01-07 21:51] LABS: TOTAL BILIRUBIN 0.7 mg/dL (0.0-1.0)
[2017-01-07 21:53] LABS: ALKALINE PHOSPHATASE 48 IU/L (3-129); GFR ESTIMATE (CALCULATED) > 59 mL/min/
[2017-01-07 21:54] LABS: UREA NITROGEN (BUN) 8 mg/dL (9-23)
[2017-01-07 21:56] LABS: LIPASE 14 U/L (1.0-51.0)
[2017-01-07 23:17] LABS: ADD MIUA? YES; BILIRUBIN NEGATIVE; BLOOD NEGATIVE; COLOR YELLOW ((YELLOW)); GLUCOSE (STRIP) NEGATIVE; KETONES NEGATIVE; LEUKOCYTES NEGATIVE; NITRITE NEGATIVE; PROTEIN (STRIP) NEGATIVE; SPECIFIC GRAVITY 1.015 (1.000-1.030); UROBILINOGEN 0.2 MG/DL (0.2-1.0)
[2017-01-07 23:23] LABS: BACTERIA RARE /HPF; EPITHELIAL CELLS RARE /HPF; MUCUS TRACE /LPF; RED BLOOD CELLS 0-5 /HPF (0-5); UCUL ADDED? NO; WHITE BLOOD CELLS 0-5 /HPF (0-5)
[2017-01-07] MEDS ORDERED: ZOFRAN ODT4 MG PO (23:31)
[2017-01-07] MEDS ORDERED: ULTRAM50 MG PO (23:31)
[2017-01-08 00:01] VITALS: BP 108/75
== END 2017-01-08 00:01 | disposition home or self-care (01) ==
LOC: EME 20:53
DX: R10.9 Unspecified abdominal pain (principal); I11.0 Hypertensive heart disease with heart failure; I50.9 Heart failure, unspecified; E78.5 Hyperlipidemia, unspecified; F32.9 Major depressive disorder, single episode, unspecified; I25.10 Atherosclerotic heart disease of native coronary artery without angina pectoris; Z88.6 Allergy status to analgesic agent; F17.200 Nicotine dependence, unspecified, uncomplicated
CPT/HCPCS: 74176; 80053; 81003; 83690; 85027; 99281; 99285; J2405; J3010; J7030